=== PATIENT | female | born 1960 | race Caucasian/White ===

== ENCOUNTER 2021-08-05 11:55 | Inpatient (IN) ==
[2021-08-05 12:26] LABS: Basophils % 0.1 %; Eosinophils # 0.3 K/mcL (0.0-0.6); Eosinophils % 2.9 %; Hematocrit 33.6 % (35.3-44.9); Hemoglobin 10.2 g/dL (11.5-15.4); Immature Granulocytes % 0.3 % (0-4); Lymphocytes # 0.6 K/mcL (0.6-4.6); Lymphocytes % 5.6 %; Mean Corpuscular HGB Conc 30.4 g/dL (31.6-35.5); Mean Corpuscular Hemoglobin 25.1 pg (28.0-33.3); Mean Corpuscular Volume 82.6 fL (83.0-100.0); Mean Platelet Volume 9.4 fL (9.4-12.4); Monocytes # 1.1 K/mcL (0.0-1.3); Monocytes % 10.5 %; Neutrophils # 8.1 K/mcL (1.6-8.9); Platelet Count 301 K/mcL (140-400); Red Blood Count 4.07 M/mcL (3.82-4.97); Red Cell Distribution Width 16.6 % (11.5-14.5); Segmented Neutrophils % 80.6 %
[2021-08-05 12:32] LABS: INR 1.2; Prothrombin Time 13.9 Seconds (9.4-12.1)
[2021-08-05 12:34] LABS: ABG Base Excess 3 mEq/L (-2 to 3); ABG HCO3 29 mEq/L (21-27); ABG Oxygen Saturation 93 % (95-98); ABG PCO2 50 mmHg (35-45); ABG PH 7.37 pH Units (7.32-7.45); ABG PO2 71 mmHg (85-104); ABG TCO2 31 mEq/L (20-26)
[2021-08-05 12:35] LABS: Activated Partial Thrombo Time 33.2 Seconds (26.0-36.0)
[2021-08-05 12:44] LABS: Alanine Aminotransferase 11 Units/L (7-52); Albumin 3.5 g/dL (3.5-5.7); Albumin/Globulin Ratio 1.1 (1.1-2.2); Alkaline Phosphatase 90 Units/L (34-104); Aspartate Amino Transferase 13 Units/L (13-39); BUN/Creatinine Ratio 36 (6-26); Bilirubin,Direct 0.2 mg/dL (0.0-0.2); Bilirubin,Indirect 0.5 mg/dL (0.0-1.0); Bilirubin,Total 0.7 mg/dL (0.3-1.0); Blood Urea Nitrogen 29 mg/dL (8-23); Calcium 8.6 mg/dL (8.6-10.3); Carbon Dioxide 30 mEq/L (23-29); Chloride 102 mEq/L (98-107); Globulin 3.1 g/dL (2.4-3.5); Glucose 109 mg/dL (70-105); Osmolality,Calculated 294 (280-300); Potassium 3.8 mEq/L (3.5-5.1); Sodium 139 mEq/L (136-145); Total Protein 6.6 g/dL (6.4-8.9); Troponin I < 0.03 ng/mL (< 0.04); eGFR For African Americans > 60 (> 60); eGFR For Non-African Americans > 60 (> 60)
[2021-08-05] MEDS ORDERED: Isovue-370 500 ML BOTTLE IVP ONE (13:15)
[2021-08-05] MEDS ORDERED: methylPREDNISolone 125 MG/2 ML VIAL IVP ONE (13:32)
[2021-08-05] MEDS ORDERED: Ondansetron 4 MG/2 ML VIAL IVP PRN (14:25)
[2021-08-05] MEDS ORDERED: Naloxone 0.4 MG/ML INJ IVP PRN (14:25)
[2021-08-05] MEDS ORDERED: Albuterol 2.5 MG/3 ML NEBULIZER ONE (14:29)
[2021-08-05] MEDS ORDERED: Perflutren Lipid Microsphere 1.3 ML in 0.9 % Sodium Chloride 8.7 ML IVP PRN (14:30)
[2021-08-05] MEDS ORDERED: Nitroglycerin 0.4 MG TAB.SUBL SL PRN (14:30)
[2021-08-05] MEDS: levoFLOXacin 750 MG/150 ML 750 MG/150 ML BAG IVPB SCH (14:56)
[2021-08-05] MEDS: carvediloL 6.25 MG TABLET PO SCH (16:43)
[2021-08-05] MEDS: MethylPREDNISolone 40 MG/ML VIAL IVP SCH ×2 (16:43→23:24)
[2021-08-05] MEDS: Furosemide 20 MG/2 ML VIAL IVP SCH ×2 (16:44→20:46)
[2021-08-05] MEDS: Ipratropium/Albuterol Neb 3 ML IH SCH ×3 (16:44→23:17)
[2021-08-05] MEDS: Budesonide/Formoterol 160/4.5 1 PUFF INH IH SCH (19:54)
[2021-08-05] MEDS: rOPINIRole 1 MG TABLET PO SCH (23:17)
[2021-08-05] MEDS: Gabapentin 400 MG CAPSULE PO SCH (23:18)
[2021-08-05] MEDS: Baclofen 10 MG TABLET PO SCH (23:19)
[2021-08-06] MEDS: Ipratropium/Albuterol Neb 3 ML IH SCH ×6 (03:57→23:49)
[2021-08-06] MEDS: MethylPREDNISolone 40 MG/ML VIAL IVP SCH ×4 (05:37→22:30)
[2021-08-06] MEDS: *HR* Enoxaparin 40 MG/0.4 ML SYRINGE SQ SCH (05:37)
[2021-08-06] MEDS: Cholecalciferol (D-3) 1,000 UNIT (25MCG) TABLET PO SCH (07:54)
[2021-08-06] MEDS: Gabapentin 400 MG CAPSULE PO SCH ×2 (07:54→22:46)
[2021-08-06] MEDS: carvediloL 6.25 MG TABLET PO SCH ×2 (07:55→17:33)
[2021-08-06] MEDS: rOPINIRole 1 MG TABLET PO SCH ×2 (07:55→22:40)
[2021-08-06] MEDS: Multivit/Ca/Min/Fe/FA 1 TAB TABLET PO SCH (07:55)
[2021-08-06] MEDS: Aspirin Enteric Coated 81 MG Tablet PO SCH (07:55)
[2021-08-06] MEDS: Baclofen 10 MG TABLET PO SCH ×2 (07:55→22:49)
[2021-08-06] MEDS: amLODIPine 5 MG TABLET PO SCH (07:56)
[2021-08-06] MEDS: Acetaminophen 325 MG TABLET PO PRN (07:58)
[2021-08-06] MEDS: Furosemide 20 MG/2 ML VIAL IVP SCH ×2 (08:03→14:17)
[2021-08-06 08:12] LABS: Hematocrit 36.9 % (35.3-44.9); Hemoglobin 11.2 g/dL (11.5-15.4); Mean Corpuscular HGB Conc 30.4 g/dL (31.6-35.5); Mean Corpuscular Hemoglobin 25.3 pg (28.0-33.3); Mean Corpuscular Volume 83.5 fL (83.0-100.0); Mean Platelet Volume 10.3 fL (9.4-12.4); Platelet Count 246 K/mcL (140-400); Red Blood Count 4.42 M/mcL (3.82-4.97); Red Cell Distribution Width 16.5 % (11.5-14.5)
[2021-08-06 08:41] LABS: BUN/Creatinine Ratio 34 (6-26); Blood Urea Nitrogen 31 mg/dL (8-23); Calcium 8.9 mg/dL (8.6-10.3); Carbon Dioxide 29 mEq/L (23-29); Chloride 100 mEq/L (98-107); Cholesterol 133 mg/dL (< 200); Glucose 152 mg/dL (70-105); HDL Cholesterol 45 mg/dL (40-59); LDL Cholesterol,Calculated 74 mg/dL (< 100); Osmolality,Calculated 296 (280-300); Potassium 4.2 mEq/L (3.5-5.1); Sodium 138 mEq/L (136-145); Triglycerides 68 mg/dL (< 150); eGFR For African Americans > 60 (> 60); eGFR For Non-African Americans > 60 (> 60)
[2021-08-06] MEDS ORDERED: Venlafaxine XR (24 HR) 75 MG CAP.ER.24H PO SCH (09:00)
[2021-08-06] MEDS: Budesonide/Formoterol 160/4.5 1 PUFF INH IH SCH ×2 (09:39→19:59)
[2021-08-06] MEDS: levoFLOXacin 750 MG/150 ML 750 MG/150 ML BAG IVPB SCH (14:17)
[2021-08-07] MEDS: Ipratropium/Albuterol Neb 3 ML IH SCH ×5 (04:06→19:54)
[2021-08-07] MEDS: *HR* Enoxaparin 40 MG/0.4 ML SYRINGE SQ SCH (04:49)
[2021-08-07] MEDS: MethylPREDNISolone 40 MG/ML VIAL IVP SCH ×3 (04:50→17:27)
[2021-08-07] MEDS: Acetaminophen 325 MG TABLET PO PRN ×2 (05:16→21:45)
[2021-08-07] MEDS: Multivit/Ca/Min/Fe/FA 1 TAB TABLET PO SCH (09:23)
[2021-08-07] MEDS: carvediloL 6.25 MG TABLET PO SCH ×2 (09:23→14:10)
[2021-08-07] MEDS: Cholecalciferol (D-3) 1,000 UNIT (25MCG) TABLET PO SCH (09:23)
[2021-08-07] MEDS: rOPINIRole 1 MG TABLET PO SCH ×2 (09:24→21:44)
[2021-08-07] MEDS: amLODIPine 5 MG TABLET PO SCH (09:24)
[2021-08-07] MEDS: Gabapentin 400 MG CAPSULE PO SCH ×3 (09:24→21:44)
[2021-08-07] MEDS: Baclofen 10 MG TABLET PO SCH ×3 (09:24→21:44)
[2021-08-07] MEDS: Furosemide 40 MG/4 ML VIAL IVP SCH ×2 (09:24→14:10)
[2021-08-07] MEDS: Aspirin Enteric Coated 81 MG Tablet PO SCH (09:25)
[2021-08-07] MEDS: Budesonide/Formoterol 160/4.5 1 PUFF INH IH SCH ×2 (12:22→19:55)
[2021-08-07] MEDS: levoFLOXacin 750 MG/150 ML 750 MG/150 ML BAG IVPB SCH (14:11)
[2021-08-07] MEDS ORDERED: Nystatin Cream 15 GM TUBE TP SCH (15:00)
[2021-08-07] MEDS: Nystatin Cream 15 GM TUBE TP SCH ×2 (17:27→21:48)
[2021-08-07] MEDS: DESVENLAFAXINE 50 MG PO SCH (17:30)
[2021-08-08] MEDS: Ipratropium/Albuterol Neb 3 ML IH SCH ×6 (00:06→20:22)
[2021-08-08] MEDS: MethylPREDNISolone 40 MG/ML VIAL IVP SCH ×2 (00:30→06:14)
[2021-08-08] MEDS: Acetaminophen 325 MG TABLET PO PRN (06:14)
[2021-08-08] MEDS: *HR* Enoxaparin 40 MG/0.4 ML SYRINGE SQ SCH (06:14)
[2021-08-08] MEDS: Budesonide/Formoterol 160/4.5 1 PUFF INH IH SCH ×2 (06:57→20:23)
[2021-08-08] MEDS: rOPINIRole 1 MG TABLET PO SCH ×2 (09:04→22:01)
[2021-08-08] MEDS: Cholecalciferol (D-3) 1,000 UNIT (25MCG) TABLET PO SCH (09:04)
[2021-08-08] MEDS: Gabapentin 400 MG CAPSULE PO SCH ×3 (09:04→22:00)
[2021-08-08] MEDS: Aspirin Enteric Coated 81 MG Tablet PO SCH (09:04)
[2021-08-08] MEDS: Baclofen 10 MG TABLET PO SCH ×3 (09:05→22:01)
[2021-08-08] MEDS: Multivit/Ca/Min/Fe/FA 1 TAB TABLET PO SCH (09:05)
[2021-08-08] MEDS: Fluconazole 100 MG TABLET PO SCH (09:05)
[2021-08-08] MEDS: amLODIPine 5 MG TABLET PO SCH (09:06)
[2021-08-08] MEDS: carvediloL 6.25 MG TABLET PO SCH ×2 (09:06→15:50)
[2021-08-08] MEDS: Furosemide 40 MG/4 ML VIAL IVP SCH ×2 (09:06→15:54)
[2021-08-08] MEDS: Nystatin Cream 15 GM TUBE TP SCH ×3 (09:07→22:01)
[2021-08-08] MEDS: DESVENLAFAXINE 50 MG PO SCH (09:09)
[2021-08-08] MEDS: levoFLOXacin 500 MG TABLET PO SCH ×2 (15:39→16:04)
[2021-08-09] MEDS: Ipratropium/Albuterol Neb 3 ML IH SCH ×3 (00:11→07:41)
[2021-08-09] MEDS: *HR* Enoxaparin 40 MG/0.4 ML SYRINGE SQ SCH (07:17)
[2021-08-09] MEDS: Budesonide/Formoterol 160/4.5 1 PUFF INH IH SCH (07:39)
[2021-08-09 07:51] VITALS: BP 124/72; PULSE 78; TEMP 97.6
[2021-08-09 07:53] VITALS: RESP 19; O2SAT 96
[2021-08-09] MEDS: Multivit/Ca/Min/Fe/FA 1 TAB TABLET PO SCH (08:33)
[2021-08-09] MEDS: carvediloL 6.25 MG TABLET PO SCH (08:33)
[2021-08-09] MEDS: rOPINIRole 1 MG TABLET PO SCH (08:33)
[2021-08-09] MEDS: amLODIPine 5 MG TABLET PO SCH (08:34)
[2021-08-09] MEDS: levoFLOXacin 500 MG TABLET PO SCH (08:34)
[2021-08-09] MEDS: Baclofen 10 MG TABLET PO SCH (08:34)
[2021-08-09] MEDS: Cholecalciferol (D-3) 1,000 UNIT (25MCG) TABLET PO SCH (08:34)
[2021-08-09] MEDS: Fluconazole 100 MG TABLET PO SCH (08:34)
[2021-08-09] MEDS: Gabapentin 400 MG CAPSULE PO SCH (08:35)
[2021-08-09] MEDS: Aspirin Enteric Coated 81 MG Tablet PO SCH (08:37)
[2021-08-09] MEDS: Nystatin Cream 15 GM TUBE TP SCH (08:37)
[2021-08-09] MEDS: DESVENLAFAXINE 50 MG PO SCH (08:37)
[2021-08-09] MEDS: Furosemide 40 MG/4 ML VIAL IVP SCH (08:51)
[2021-08-09] MEDS ORDERED: predniSONE 20 MG TABLET PO SCH (09:00)
== END 2021-08-09 13:30 | disposition home or self-care (01) | DRG 139 ==
LOC: EMEROOGRE 11:55 → INPGRE 14:46
PROVIDERS: ADMIT Family Medicine; ATTEND Family Medicine